=== PATIENT | female | born 1985 | race Caucasian/White ===

== ENCOUNTER 2017-01-27 09:41 | Emergency (ER) | payer MEDICAID, OTHER ==
[2017-01-27 09:49] VITALS: TEMP 97.5
--- NOTE | 2017-01-27 10:03 | CPEKG ---
Heart Rate: 90 RR Interval: 667 P-R Interval: 144 QRSD Interval: 80 QT Interval: 356 QTC Interval: 436 P [place]: 75 QRS [place]: 63 T Wave [place]: 40 EKG Severity - NORMAL ECG - EKG Impression: SINUS RHYTHM Electronically Signed By: Vinayak Alcocer 27-Jan-2017 12:49:49
[2017-01-27] MEDS ORDERED: fentaNYL 100 MCG/2 ML INJ ONE (10:06)
[2017-01-27] MEDS ORDERED: ONDANSETRON 4 MG/2 ML VIAL ONE (10:07)
[2017-01-27] MEDS ORDERED: NS 1,000 ML IV ONE (10:07)
[2017-01-27] MEDS ORDERED: fentaNYL 100 MCG/2 ML INJ IVP ONE (10:10)
[2017-01-27] MEDS ORDERED: ONDANSETRON 4 MG/2 ML VIAL IVP ONE (10:10)
[2017-01-27 10:13] LABS: % IMMATURE GRANULYOCYTES 0.3 % (0.0-1.1); ABSOLUTE IMMATURE GRANULOCYTES 0.02 10^3/uL (0.00-0.10); ADD DIFF? NO; ADD MORPH? NO; ADD SCAN? NO; ATYPICAL LYMPHOCYTE FLAG 30 (0-99); FRAGMENT RBC FLAG 0 (0-99); HEMATOCRIT 44.9 % (38.0-47.0); HEMOGLOBIN 15.1 g/dL (12.6-16.3); LEFT SHIFT FLG 0 (0-99); LIPEMIA HEMOLYSIS FLAG 80 (0-99); MEAN CELL HEMOGLOBIN 29.7 pg (27.9-34.1); MEAN CELL HEMOGLOBIN CONCENTR. 33.6 g/dL (32.4-36.7); MEAN CELL VOLUME 88.4 fL (81.5-99.8); PLATELET CLUMPS FLAG 10 (0-99); PLATELET COUNT 222 10^3/uL (150-400); RED BLOOD CELL COUNT 5.08 10^6/uL (4.18-5.33); RED CELL DISTRIBUTION WIDTH 12.5 % (11.5-15.2)
--- NOTE | 2017-01-27 10:13 | EDPHY ---
H & P Stated Complaint: r sided cp radiates into back Source: Patient, Family Exam Limitations: No limitations - Personal History LMP (Females 10-55): 8-14 Days Ago Current Tetanus/Diphtheria Vaccine: Yes - Medical/Surgical History Hx Asthma: No Hx Chronic Respiratory Disease: No Hx Diabetes: No Hx Cardiac Disease: No Hx Renal Disease: No Hx Cirrhosis: No Hx Alcoholism: No Hx HIV/AIDS: No Hx Splenectomy or Spleen Trauma: No Other PMH: denies - Social History Smoking Status: Never smoked HPI/ROS: CHIEF COMPLAINT: Chest Pain HISTORY OF PRESENT ILLNESS: Right-sided chest pain that started abruptly 1 hour ago. This is severe pain. Radiates to the back and into the epigastrium. Some shortness of breath. No cough. No fever. No chills. No flank pain. No position of comfort when it happens. The pain improved but never fully goes away. It does get worse periodically over the past hour. No particular modifying factors. No recent travel or surgery. No previous venous thrombolic event. She does have a Mirena and she is 10 months . No complications . No other medications. No other associated complaints or modifying factors. FAMILY HISTORY CARDIAC: Denies PRIOR CARDIAC WORKUP: None REVIEW OF SYSTEMS: Ten systems reviewed and are negative unless otherwise noted in the HPI EXAMINATION: General Appearance: Alert, no distress Head: normocephalic, atraumatic Eyes: Pupils equal and round, no conjunctival pallor or injection ENT, Mouth: Mucous membranes moist. Uvula midline. No erythema or edema Neck: Normal inspection, supple, non-tender Respiratory: Lungs are clear to auscultation. No wheezing, rhonchi or crackles Cardiovascular: Regular rate and rhythm with intermittent tachycardic rate. No murmur. Pulses intact distally. Gastrointestinal: Abdomen is soft and nontender. No tympany. No rigidity. No epigastric or right upper quadrant tenderness or guarding. No distention. Nonacute abdomen. Neurological: GCS 15. A&O, nonfocal, strength symmetric. Skin: Warm and dry, no rash Extremities: Nontender, no pedal edema Psychiatric: Mood and affect normal DIFFERENTIAL DIAGNOSES: Including but not limited to in no particular order: Acute Chest Pain, ACS, Stable Angina, Pneumonia, PE, duodenitis, gastritis, esophagitis, GERD, cholecystitis, cholelithiasis MDM: 10:10 a.m. Right-sided chest pain that started abruptly 1 hour ago. It is constant. Severe. She is in obvious discomfort in the room. Vital signs are stable with 2 episodes of tachycardia while I was in the room. I have ordered an I-STAT to check her creatinine. We will then proceed with CT scan of the chest to rule out embolism. Laboratory studies have been ordered. 11:[address] of the chest unremarkable for any acute findings. Laboratory studies are all within normal limits. I re-evaluated the patient at this time. She is feeling much better. Plan for discharge home and follow up with primary care physician. She is to return to the ER for any return or worsening of symptoms. She and her spouse are comfortable with this plan. EKG: Interpreted by Dr. Alcocer SUPERVISION: This patient was independently evaluated without direct examination by the attending physician. Case was discussed with attending physician. (Arthur Solorio ) Constitutional: Initial Vital Signs Temperature (C) 97.5 F 01/27/17 09:47 Heart Rate 87 01/27/17 09:47 Respiratory Rate 22 H 01/27/17 09:47 Blood Pressure 123/60 H 01/27/17 09:47 O2 Sat (%) 99 01/27/17 09:47 O2 Delivery Mode Room Air Allergies/Adverse Reactions: No Known Allergies Allergy (Verified 01/27/17 09:46) Home Medications: Medication Instructions Recorded NK [No Known Home Meds] 01/27/17 Medical Decision Making - Diagnostics EKG Interpretation: 12-lead EKG interpreted by me; official reading is in trace master. My interpretation is sinus rhythm rate 90 no acute ischemic changes. (Vinayak Alcocer) Other Provider: PHYSICIAN DOCUMENTATION: EKG reviewed by myself. Case discussed with PA. Discussed with Finger 1115am no PE; normal study. I am the secondary supervising physician. (Vinayak Alcocer) - Data Points Laboratory Results: Laboratory Results 01/27/17 10:00 01/27/17 10:00 Medications Given: Discontinued Medications Fentanyl (Sublimaze) 100 mcg IVP EDNOW ONE Stop: 01/27/17 10:11 Last Admin: 01/27/17 10:10 Dose: 100 mcg Sodium Chloride (Ns) 1,000 mls @ 0 mls/hr IV ONCE ONE PRN Reason: Wide Open Stop: 01/27/17 10:08 Last Admin: 01/27/17 10:23 Dose: 1,000 mls Ondansetron HCl (Zofran) 4 mg IVP EDNOW ONE Stop: 01/27/17 10:11 Last Admin: 01/27/17 10:10 Dose: 4 mg Oxycodone/Acetaminophen (Percocet 5/325) 1 tab PO EDNOW ONE Stop: 01/27/17 12:00 Last Admin: 01/27/17 12:21 Dose: 1 tab Oxycodone/Acetaminophen (Percocet 5/325mg Prepack#4) 1 btl TAKEHOME EDNOW ONE Stop: 01/27/17 12:09 Last Admin: 01/27/17 12:21 Dose: 1 btl Departure - Departure Disposition: Home, Routine, Self-Care Clinical Impression: Chest pain Qualifiers: Chest pain type: chest pain on breathing Qualified Code(s): R07.1 - Chest pain on breathing Condition: Good Instructions: Oxycodone/Acetaminophen (By mouth), Chest Pain (ED), Chest Wall Pain (ED) Additional Instructions: Ibuprofen 600-800 mg every 8 hours as needed. Follow up with primary care physician. Return to ER for return of symptoms Referrals: Kelin Gonzalez MD [[facility] [place] Primary Care Provider] - As per Instructions
[2017-01-27] MEDS ORDERED: IOPAMIDOL (ISOVUE 370) 100 ML BTL IV ONE (10:26)
[2017-01-27 10:43] LABS: ALANINE AMINOTRANSFERASE 28 IU/L (9-52); ALBUMIN 4.8 g/dL (3.5-5.0); ALKALINE PHOSPHATASE 62 IU/L (38-126); ANION GAP 12 mEq/L (8-16); ASPARTATE AMINOTRANSFERASE 23 IU/L (14-46); BILIRUBIN,TOTAL 1.1 mg/dL (0.1-1.4); BILIRUBIN-CONJUGATED 0.4 mg/dL (0.0-0.5); BILIRUBIN-UNCONJUGATED 0.7 mg/dL (0.0-1.1); CALCIUM 9.8 mg/dL (8.5-10.4); CARBON DIOXIDE 23 mEq/l (22-31); CHLORIDE 105 mEq/L (97-110); CREATININE 0.7 mg/dL (0.6-1.0); GLOMERULAR FILTRATION RATE > 60; GLUCOSE 112 mg/dL (70-100); POTASSIUM 4.2 mEq/L (3.5-5.2); SODIUM 140 mEq/L (134-144); TOTAL PROTEIN 8.2 g/dL (6.3-8.2)
[2017-01-27 10:53] LABS: TROPONIN I < 0.012 ng/mL (0-0.034)
[2017-01-27] MEDS ORDERED: OXYCODONE/APAP 5/325 TAB PO ONE (11:59)
[2017-01-27] MEDS ORDERED: OXYCODONE/APAP 5/325MG PREPACK#4 BTL TAKEHOME ONE ×2 (12:07→12:08)
[2017-01-27 12:47] VITALS: BP 97/66; PULSE 83; RESP 16; O2SAT 99
== END 2017-01-27 12:46 | disposition home or self-care (01) ==
DX: R07.1 Chest pain on breathing (principal)
CPT/HCPCS: 82947-QW; 96374; J2405; J3010; Q9967

== ENCOUNTER 2017-03-28 14:47 | Emergency (ER) | payer OTHER ==
--- NOTE | 2017-03-28 15:06 | CPEKG ---
Heart Rate: 77 RR Interval: 779 P-R Interval: 160 QRSD Interval: 88 QT Interval: 396 QTC Interval: 449 P [place]: 79 QRS [place]: 61 T Wave [place]: 18 EKG Severity - OTHERWISE NORMAL ECG - EKG Impression: SINUS ARRHYTHMIA, RATE 63-90 Electronically Signed By: Ta Hinton 28-Mar-2017 15:43:40
--- NOTE | 2017-03-28 15:30 | EDPHY ---
H & P Time Seen by Provider: 03/28/17 14:57 HPI/ROS: Chief complaint. Chest pain HPI. 31-year-old female presents emergency department with right-sided chest pain that began this morning. Described as sharp, right-sided, radiation to right back. It is worse with movement and breathing but not exertion. Slight shortness of breath. Vomiting x1. No fever cough. She has tingling to her lips , arms, legs. During the exam she has carpopedal spasm of her hands. She had similar symptoms in January with the normal workup including chest CT. No precipitating factors today of illness, unusual activity, trauma. Denies unusual leg pain or swelling ROS Constitutional. no fever/chills, no weakness Eyes. no problems with vision ENT. no sore throat, no nasal drainage Cardiovascular. Right-sided chest pain Respiratory. Shortness of breath Abdominal. no abdominal pain, no nausea/vomiting, no diarrhea . no problems urinating MS. no calf pain/swelling, no neck/back pain, no joint pain Skin. no rash Lymph. no swollen glands Neuro. no headache, no dizziness, no difficulty walking or with speech Past Medical/Surgical History: Healthy Social History: , nonsmoker, no alcohol Smoking Status: Never smoked Physical Exam: General Appearance: Alert well-developed female moderate distress. Vital signs are stable Eyes: Pupils equal and round no pallor or injection. ENT, Mouth: Mucous membranes are moist. Respiratory: There are no retractions, lungs are clear to auscultation. Cardiovascular: Regular rate and rhythm. Gastrointestinal: Abdomen is soft and nontender, no masses, bowel sounds normal. Neurological: Awake and alert, sensory and motor exams grossly normal. Carpopedal spasm to hands Skin: Warm and dry, no rashes. Musculoskeletal: Neck is supple nontender. Chest wall is tender to palpation Extremities symmetrical, full range of motion. Psychiatric: Patient is oriented X 3, there is no agitation. Constitutional: Initial Vital Signs Temperature (C) 36.7 C 03/28/17 14:49 Heart Rate 77 03/28/17 14:49 Respiratory Rate 20 03/28/17 14:49 Blood Pressure 93/68 L 03/28/17 14:49 O2 Sat (%) 100 03/28/17 14:49 O2 Delivery Mode Room Air Allergies/Adverse Reactions: No Known Allergies Allergy (Verified 01/27/17 09:46) Home Medications: Medication Instructions Recorded oxyCODONE/APAP 325 [Percocet 1 tab PO Q4-6PRN PRN #7 tab 03/28/17 5/325] Medical Decision Making - Diagnostics EKG Interpretation: EKG interpreted by me shows sinus arrhythmia. Normal interval and axis. QRS is normal no significant ST elevation or depression. Ventricular response varies from 63-90. Rate on EKG 77 Procedures: Old records reviewed IV normal saline. IV fentanyl and Zofran. IV Toradol and IV Ativan ED Course/Re-evaluation: Patient refuses chest x-ray, Ativan, fentanyl. She did receive Toradol and Zofran. Re-evaluation at 4:15 p.m. patient is pain-free. She would like to be discharged. She does not wish further workup. She has been given Dr. Joseph signs name for follow-up in January but did not follow up because they did not take [place] insurance. I told him I would give them the name of another physician for follow-up. She is encouraged to return for worsening symptoms. We discussed laboratory evaluation and EKG findings. We discussed treatment plan including criteria for return and importance of follow-up and further evaluation. She expresses understanding and agreement Differential Diagnosis: Certainly there was an element of anxiety. I have considered acute coronary syndrome, pulmonary embolus. She refuses chest x-ray but clinically she does not have pneumonia or pneumothorax - Data Points Laboratory Results: Laboratory Results 03/28/17 15:00 03/28/17 15:00 03/28/17 03/28/17 03/28/17 15:00 15:00 15:00 WBC RBC Hgb Hct MCV MCH MCHC RDW Plt Count MPV Neut % (Auto) Lymph % (Auto) [place] % (Auto) Eos % (Auto) Baso % (Auto) Nucleat RBC Rel Count Absolute Neuts (auto) Absolute Lymphs (auto) Absolute Monos (auto) Absolute Eos (auto) Absolute Basos (auto) Absolute Nucleated RBC Immature Gran % Immature Gran # D-Dimer < 0.27 ug/mLFEU ug/mLFEU (0.00-0.50) Sodium 140 mEq/L mEq/L (134-144) Potassium 3.7 mEq/L mEq/L (3.5-5.2) Chloride 107 mEq/L mEq/L (97-110) Carbon Dioxide 20 mEq/l L mEq/l (22-31) Anion Gap 13 mEq/L mEq/L (8-16) BUN 11 mg/dL mg/dL (7-23) Creatinine 0.8 mg/dL mg/dL (0.6-1.0) Estimated GFR > 60 Glucose 100 mg/dL mg/dL (70-100) Calcium 10.2 mg/dL mg/dL (8.5-10.4) Troponin I < 0.012 ng/mL ng/mL (0-0.034) Lipase 69.0 IU/L IU/L (23-300) Beta HCG, Qual NEGATIVE 03/28/17 15:00 WBC 7.46 10^3/uL 10^3/uL (3.80-9.50) RBC 4.86 10^6/uL 10^6/uL (4.18-5.33) Hgb 14.7 g/dL g/dL (12.6-16.3) Hct 42.7 % % (38.0-47.0) MCV 87.9 fL fL (81.5-99.8) MCH 30.2 pg pg (27.9-34.1) MCHC 34.4 g/dL g/dL (32.4-36.7) RDW 12.8 % % (11.5-15.2) Plt Count 270 10^3/uL 10^3/uL (150-400) MPV 9.3 fL fL (8.7-11.7) Neut % (Auto) 60.1 % % (39.3-74.2) Lymph % (Auto) 32.7 % % (15.0-45.0) [place] % (Auto) 5.6 % % (4.5-13.0) Eos % (Auto) 0.9 % % (0.6-7.6) Baso % (Auto) 0.4 % % (0.3-1.7) Nucleat RBC Rel Count 0.0 % % (0.0-0.2) Absolute Neuts (auto) 4.48 10^3/uL 10^3/uL (1.70-6.50) Absolute Lymphs (auto) 2.44 10^3/uL 10^3/uL (1.00-3.00) Absolute Monos (auto) 0.42 10^3/uL 10^3/uL (0.30-0.80) Absolute Eos (auto) 0.07 10^3/uL 10^3/uL (0.03-0.40) Absolute Basos (auto) 0.03 10^3/uL 10^3/uL (0.02-0.10) Absolute Nucleated RBC 0.00 10^3/uL 10^3/uL (0-0.01) Immature Gran % 0.3 % % (0.0-1.1) Immature Gran # 0.02 10^3/uL 10^3/uL (0.00-0.10) D-Dimer Sodium Potassium Chloride Carbon Dioxide Anion Gap BUN Creatinine Estimated GFR Glucose Calcium Troponin I Lipase Beta HCG, Qual Medications Given: Discontinued Medications Fentanyl (Sublimaze) 100 mcg IVP EDNOW ONE Stop: 03/28/17 15:38 Last Admin: 03/28/17 16:05 Dose: Not Given Sodium Chloride (Ns) 1,000 mls @ 0 mls/hr IV ONCE ONE; Wide Open PRN Reason: Protocol Stop: 03/28/17 15:38 Last Admin: 03/28/17 16:06 Dose: 1,000 mls Ketorolac Tromethamine (Toradol) 30 mg IVP EDNOW ONE Stop: 03/28/17 15:39 Last Admin: 03/28/17 16:05 Dose: 30 mg Lorazepam (Ativan Injection) 1 mg IVP EDNOW ONE Stop: 03/28/17 15:42 Last Admin: 03/28/17 16:06 Dose: Not Given Ondansetron HCl (Zofran) 4 mg IVP EDNOW ONE Stop: 03/28/17 15:38 Last Admin: 03/28/17 16:06 Dose: 4 mg Departure - Departure Disposition: Home, Routine, Self-Care Clinical Impression: Chest wall pain Condition: Good Instructions: Chest Wall Pain (ED) Additional Instructions: Ibuprofen 600 mg every 6 hours. Oxycodone if needed for pain. Return for worsening pain or breathing. Recheck in 2 days without fail Referrals: SILVERIO GUERRERO [Other] - As per Instructions Doe Adame MD [Medical Doctor] - 2-3 days, call for appt. Prescriptions: oxyCODONE/APAP [Percocet ] 1 tab PO Q4-6PRN PRN #7 tab PRN Reason: Pain, Moderate
[2017-03-28] MEDS ORDERED: fentaNYL 100 MCG/2 ML INJ IVP ONE (15:37)
[2017-03-28] MEDS ORDERED: ONDANSETRON 4 MG/2 ML VIAL IVP ONE (15:37)
[2017-03-28] MEDS ORDERED: NS 1,000 ML IV ONE (15:37)
[2017-03-28] MEDS ORDERED: KETOROLAC 30 MG/1 ML SDV IVP ONE (15:38)
[2017-03-28] MEDS ORDERED: LORazepam 2 MG/ML INJ IVP ONE (15:41)
[2017-03-28 15:50] LABS: % IMMATURE GRANULYOCYTES 0.3 % (0.0-1.1); ABSOLUTE IMMATURE GRANULOCYTES 0.02 10^3/uL (0.00-0.10); ADD DIFF? NO; ADD MORPH? NO; ADD SCAN? NO; ATYPICAL LYMPHOCYTE FLAG 30 (0-99); FRAGMENT RBC FLAG 10 (0-99); HEMATOCRIT 42.7 % (38.0-47.0); HEMOGLOBIN 14.7 g/dL (12.6-16.3); LEFT SHIFT FLG 0 (0-99); LIPEMIA HEMOLYSIS FLAG 90 (0-99); MEAN CELL HEMOGLOBIN 30.2 pg (27.9-34.1); MEAN CELL HEMOGLOBIN CONCENTR. 34.4 g/dL (32.4-36.7); MEAN CELL VOLUME 87.9 fL (81.5-99.8); MEAN PLATELET VOLUME 9.3 fL (8.7-11.7); PLATELET CLUMPS FLAG 0 (0-99); PLATELET COUNT 270 10^3/uL (150-400); RED BLOOD CELL COUNT 4.86 10^6/uL (4.18-5.33); RED CELL DISTRIBUTION WIDTH 12.8 % (11.5-15.2)
[2017-03-28 15:51] LABS: ANION GAP 13 mEq/L (8-16); CALCIUM 10.2 mg/dL (8.5-10.4); CARBON DIOXIDE 20 mEq/l (22-31); CHLORIDE 107 mEq/L (97-110); CREATININE 0.8 mg/dL (0.6-1.0); GLOMERULAR FILTRATION RATE > 60; GLUCOSE 100 mg/dL (70-100); POTASSIUM 3.7 mEq/L (3.5-5.2); SODIUM 140 mEq/L (134-144)
[2017-03-28 16:02] LABS: TROPONIN I < 0.012 ng/mL (0-0.034)
[2017-03-28 16:46] VITALS: BP 103/66; PULSE 64
[2017-03-28 16:47] VITALS: RESP 14; TEMP 97.9; O2SAT 92
== END 2017-03-28 16:47 | disposition home or self-care (01) ==
DX: R07.89 Other chest pain (principal)
CPT/HCPCS: 96374; J1885; J2060; J2405; J3010